=== PATIENT | male | born 1980 | race Caucasian/White ===

== ENCOUNTER 2020-11-01 13:57 | Outpatient (CLI) | payer BC | END 2020-11-01 13:58 | disposition home or self-care (01) | LOC: COV 13:57 | PROVIDERS: ATTEND Family Medicine | DX: R06.02 Shortness of breath (principal); M79.10 Myalgia, unspecified site; R53.83 Other fatigue; R68.83 Chills (without fever); R07.0 Pain in throat; R19.7 Diarrhea, unspecified; R09.81 Nasal congestion; J34.89 Other specified disorders of nose and nasal sinuses; Z20.822 Contact with and (suspected) exposure to COVID-19 ==

== ENCOUNTER 2021-01-28 11:09 | Outpatient (CLI) | payer BC ==
[2021-01-28 12:16] VITALS: BP 148/99
--- NOTE | 2021-01-28 12:16 | SLEEP CARE CONSULTATION ---
Information from patient questionnaire entered by Jordy Qureshi MA. I have reviewed and concur with the information entered by Jordy Qureshi MA. This document represents the service I personally performed and the decisions made by me, Lamar Shook ARNP. History of Present Illness Service Date and Time: 01/28/2021 1109 Reason for Visit: New patient Chief Complaint: reports: Snoring. denies: Unrefreshed sleep, Observed pauses in breathing Date of Onset: all of my adult life (20 plus years) Usual bedtime: 1030 pm Time it takes to fall asleep: 15 - 20 minutes Snores at night: Yes Observed to quit breathing while asleep: No Sleeps alone due to snoring: Yes Number of times waking at night: 0 Reasons for waking at night: reports: Bathroom, Other (dreams). denies: Choking, Snoring, Gasping for air Toss, Turn, or Twitch while sleeping: Yes Recalls having dreams: Yes Usually gets out of bed at: 0700 Feels refreshed in the morning: Yes Morning headache: No Sleepy or fatigued during the day: No Ever fallen asleep while driving: No Takes day naps: Yes (1 time a week on average for 30 mins) Dreams during day naps: No Prior sleep studies: No Additional HPI information: I had the pleasure of seeing ANKITA REILLY today regarding the possibility of him having a sleep disorder. His current complaint is snoring. He states he usually wakes up feeling rested. He does have a history of taking naps but these days average one a week. His will sleep in different room because his snoring is loud and will keep her awake. She has not heard him have any pauses in breathing or gasping in his sleep. He feels he has normal energy during the day and no problem with drowsy driving. 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 Patient is and lives in [place]. Have you smoked in the past 12 months: No Alcohol use: Yes Alcohol amount and frequency: 1 x very other week Caffeine use: No Family History Family history of sleep disordered breathing: No Family Hx Sleep Apnea: Mother: Snoring (maybe), Father: Snoring Allergies and Home Medications Drug allergies reviewed: Yes (NKDA) Home medication list reviewed: Yes Allergy and home medication list: OTC Allergy medication in last month Vitamin D, occasionally, darci in winter Review of Systems Cardiovascular: denies: high blood pressure Gastrointestinal: denies: heartburn Neurological: denies: headaches Psychiatric: denies: anxiety, depression, mood disorder Ear/Nose/Throat: reports: nasal congestion, sinus problems. denies: injury to nose, tonsillectomy, wisdom teeth removed Endocrine: reports: too hot or cold Physical Exam Vital signs obtained and entered by: ADAL ULRICH Blood Pressure: 148/99 (left wrist) Cuff size: wrist Heart Rate: 68 O2 Saturation: 98 (with mask) Height: 6 ft Weight: 211 lb (with boots and clothes) Body Mass Index: 28.6 BMI Classification: Overweight Neck circumference: 16 (inches) Mouth and throat: narrow oropharynx Soft palate: long Hard palate: normal Uvula: normal Uvula visualization: 50% Mallampati Class II Tongue: enlarged in size with teeth ramirez on lateral edges Tonsils: small Neck: normal w/o lymphadenopathy or thyromegaly Heart: regular rate and rhythm Lungs: clear bilaterally Impression and Plan 1. Suspected Obstructive Sleep Apnea-Hypopnea Syndrome, as suggested by a history of loud and irregular snoring. Narrow oropharynx and obesity are common predisposing factors for obstructive sleep apnea-hypopnea syndrome. I recommend proceeding to polysomnography to confirm the diagnosis and to assess severity. If the patient has significant sleep disordered breathing, a manual CPAP titration study will also be performed to find the optimal treatment pressure. I informed the patient of what the sleep studies involve and after some discussion, obtained agreement to proceed. The pathophysiology of obstructive sleep apnea-hypopnea syndrome was discussed with the patient and health risks of cardiovascular and cerebrovascular disease if not treated. Risks of drowsy driving discussed in detail and patient advised to avoid long distance driving and to door puller at the first sign of drowsiness. Patient agreed to plan. * Schedule polysomnography +- manual CPAP titration study and return in 1-2 weeks after the study to discuss result and initiate therapy. * Avoid long distance driving or driving when feeling sleepy. * Avoid alcohol, sedative and muscle relaxant around bedtime. * Attempt to lose weight. * Review instructions provided by trained office staff on how to prepare for the sleep study. * Return for follow-up after sleep study completed. Counseling Topics: Weight loss health impact Visit Type: In Office Time Spent with Patient (minutes): 31 Provider Statement: I spent 100% of the Face to Face Visit with the patient with greater than 50% spent counseling the patient and coordination of care.
== END 2021-01-28 11:10 | disposition home or self-care (01) ==
LOC: SC 11:09
PROVIDERS: ATTEND Nurse Practitioner Family
DX: R06.83 Snoring (principal)
CPT/HCPCS: 99203; 99212

== ENCOUNTER 2021-04-27 12:17 | Outpatient (CLI) | payer BC | END 2021-04-27 12:18 | disposition home or self-care (01) | LOC: SC 12:17 | PROVIDERS: ATTEND Nurse Practitioner Family | DX: G47.33 Obstructive sleep apnea (adult) (pediatric) (principal); E66.3 Overweight; Z68.28 Body mass index [BMI] 28.0-28.9, adult | CPT/HCPCS: 95806 ==

== ENCOUNTER 2021-05-12 13:59 | Outpatient (CLI) | payer BC ==
--- NOTE | 2021-05-12 14:07 | SLEEP CARE CONSULTATION ---
Information from patient questionnaire entered by Jordy Qureshi MA. I have reviewed and concur with the information entered by Jordy Qureshi MA. This document represents the service I personally performed and the decisions made by , Lamar Shook ARNP. History of Present Illness Service Date and Time: 05/12/2021 1340 Initial [place] Sleepiness Scale score: 4 (2020) Current [place] Sleepiness Scale score: 4 Additional HPI information: ANKITA REILLY returns via video teleheath visit for follow up and results of the recently performed home sleep study. I explained the pathophysiology behind obstructive sleep apnea. We then spent quite a bit of time discussing different treatment options. For mild obstructive sleep apnea, surgery and oral appliance are alternatives to nasal CPAP therapy but in moderate or severe cases, nasal CPAP is the most effective and reliable treatment. Because apnea is primarily in supine position, then positional management therapy could be effective. I reviewed the impact of weight changes on sleep apnea and strongly recommended losing weight. After some discussion, the patient opted to go with the nasal CPAP therapy. Nasal autoCPAP set at 4-15 cmH20 will be ordered with rationale explained. A manual titration study will be ordered if unable to find optimal pressure with office adjustments. I explained how CPAP machine works and what to expect when using the machine. Using CPAP every night in order to get used to it was emphasized. Patient advised to put CPAP mask on before getting into bed so as not to fall asleep without CPAP. To assist acclimation to CPAP use, it could also be used for a short time during day while reading or watching TV. The patient was instructed to call the CPAP supplier to discuss any mechanical problem that may occur. If the mask given is uncomfortable or is difficult to keep on through the night even with adjustment, contact the CPAP supplier as many will replace with another mask style if notified before 30 days. If snoring or perceives is not getting enough air or too much air from the machine, notify this office. Patient counseled not drink alcohol less than 4 hours before bedtime as it can increase snoring and apnea. Patient was cautioned about risks of drowsy driving until sleepiness symptoms resolve. Sleep Study - Results Type of Sleep Study: Home sleep study (F/U HOME STUDY DONE 04/27/2021 [facility]) Prior sleep studies: No Polysomnography/Home Sleep Study results: Physician Impression: The quality of the study is good. The length of the study is adequate (> 240 minutes). Please also see the tabulated and graphic data. 1. Obstructive Sleep Apnea-Hypopnea (ICD-10 G47.33), mild, with an AHI of 5.2/hr and karen SaO2 of 92%. During the study, the patient had 46 apneas (43 obstructive, 0 central, 3 mixed) and 1 hypopnea. The longest episode lasted 89.5 seconds. The respiratory events occurred almost exclusively during supine sleep (supine AHI was 11.7 and non-supine, 1.23). Allergies and Home Medications Home medication list reviewed: Yes (no changes) Review of Systems Review of systems same as previous: No (knee pain from injury, going to fu with pcp) Physical Exam Vital signs obtained and entered by: Telehealth visit to reduce exposure during covid pandemic Height: 6 ft Impression and Plan 1. Obstructive Sleep Apnea-Hypopnea Syndrome, mild, with lowest oxygen saturation of 92%. Obviously this is the cause of the patients symptoms of unrefreshed sleep, and excessive daytime sleepiness. As mentioned above, the patient will be started on nasal autoCPAP therapy with pressure set at 4-15 cmH2 O. A manual titration study will be completed if unable to find optimal bridgette tment pressure with office adjustments. Compliance guidelines also reviewed. A copy of compliance guidelines will be given for reference at check out. Because the apnea is more severe supine, I instructed to avoid sleeping supine using pillow positioning until able to start CPAP use. Patient is also going to look into possible surgeries to help reduce his snoring and control apneas. I advised him to contact his PCP for referral to an ENT specialist. He voiced understanding. * Nasal auto CPAP therapy, pressure at 4-15 cm H2O. * Attempt to lose weight. * Avoid alcohol consumption near bedtime. * Avoid supine sleep until using CPAP. * The patient is again cautioned about driving until sleepiness completely resolves. * Return one month after CPAP obtained. I will assess response to therapy and co mpliance at that time. Counseling Topics: Weight loss health impact Visit Type: Telehealth Video Video Type: Doximity Patient Location: Home Location of Provider: Office Patient agrees and consents to this telehealth visit type: Yes Patient agrees to have their insurance billed: Yes Time Spent with Patient (minutes): 18 Provider Statement: I spent 100% of the Telehealth Video Call with the patient with greater than 50% spent counseling the patient and coordination of care.
== END 2021-05-12 14:00 | disposition home or self-care (01) ==
LOC: SC 13:59
PROVIDERS: ATTEND Nurse Practitioner Family
DX: G47.33 Obstructive sleep apnea (adult) (pediatric) (principal)

== ENCOUNTER 2021-05-28 10:54 | Outpatient (CLI) | payer BC ==
--- NOTE | 2021-05-28 12:09 | XRAY Report ---
PROCEDURE: Knee 3 View RT INDICATIONS: RIGHT KNEE PAIN TECHNIQUE: 3 views of the right knee(s) were acquired. COMPARISON: None. FINDINGS: Bones: No fractures or dislocations. No suspicious bony lesions. There is mild medial femorotibial joint space narrowing, with associated degenerative change with sub chondral sclerosis and osteophyte formation. On the sunrise view, there is moderate patellofemoral maritza int space narrowing, with associated remodeling changes, including spurs along the margins of the pat ramona. Soft tissues: There is a mild to moderate joint effusion. No suspicious soft tissue calcifications. IMPRESSION: Moderate patellofemoral joint space narrowing is seen. Mild to moderate joint effusion. If it would be helpful for clinical management decision making, please consider a dedicated, schedule d knee MRI for further evaluation (assuming that there is no contraindication). Reviewed by: Darnell Garcia MD on 05/28/2021 11:07 AM [facility] Approved by: Darnell Garcia MD on 05/28/2021 11:07 AM [facility] Station ID: [id number]
== END 2021-05-28 10:55 | disposition home or self-care (01) ==
LOC: DI.S 10:54
PROVIDERS: ATTEND Nurse Practitioner Family
DX: M17.11 Unilateral primary osteoarthritis, right knee (principal); M25.461 Effusion, right knee

== ENCOUNTER 2021-11-10 13:22 | Outpatient (CLI) | payer BC | END 2021-11-10 13:23 | disposition left against medical advice (07) | LOC: EMS 13:22 | DX: R42 Dizziness and giddiness (principal); W22.8XXA Striking against or struck by other objects, initial encounter; Y92.009 Unspecified place in unspecified non-institutional (private) residence as the place of occurrence of the external cause ==